=== PATIENT | male | born 1985 ===

== ENCOUNTER → 2018-06-19 23:08 | Outpatient (REF) | payer BC, SELFPAY ==
[2018-06-22 22:43] LABS: RPR Screen Nonreactive (Nonreactive)
== END ==
LOC: LAB 23:08
PROVIDERS: Visit Provider Family Medicine
DX: Z11.1 Encounter for screening for respiratory tuberculosis (principal); Z11.3 Encounter for screening for infections with a predominantly sexual mode of transmission
CPT/HCPCS: 36415; 86592; 87591